=== PATIENT | male | born 1970 | race Caucasian/White ===

== ENCOUNTER 2017-09-24 16:38 | Emergency (ER) | payer OTHER ==
[~2017-09-24] VITALS: Ht 167.6 cm; Wt 69.0 kg
[~2017-09-24 16:38] MED LIST: AMOX500T PO; BACT800T5 PO; IBUP800T23 PO
[2017-09-24 16:39] VITALS: BP 170/98; PULSE 115; RESP 20; TEMP 98.3; O2SAT 98
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
--- NOTE | 2017-09-24 18:39 | RADRPT ---
EXAM DATE/TIME: 09/24/2017 18:09 [facility] COMPARISON: CT BRAIN W/O CONTRAST, August 02, 2010, 21:31. INDICATIONS : Trauma, fall. RADIATION DOSE: 47.41 CTDIvol (mGy) MEDICAL HISTORY : Non-responsive. SURGICAL HISTORY : None. ENCOUNTER: Initial ACUITY: 1 day PAIN SCALE: 8/10 LOCATION: cranial TECHNIQUE: Multiple contiguous axial images were obtained of the head. Using automated exposure control and adj ustment of the mA and/or kV according to patient size, radiation dose was kept as low as reasonably a chievable to obtain optimal diagnostic quality images. DICOM format image data is available electro nically for review and comparison. FINDINGS: CEREBRUM: The ventricles are normal for age. No evidence of midline shift, mass lesion, hemorrhage or acute in farction. No extra-axial fluid collections are seen. POSTERIOR FOSSA: The cerebellum and brainstem are intact. The 4th ventricle is midline. The cerebellopontine angle i s unremarkable. EXTRACRANIAL: The visualized portion of the orbits is intact. SKULL: The calvaria is intact. No evidence of skull fracture. CONCLUSION: Negative noncontrast head CT. Titi Wiggins MD on September 24, 2017 at 18:36 Board Certified Radiologist. This report was verified electronically.
--- NOTE | 2017-09-24 18:51 | RADRPT ---
EXAM DATE/TIME: 09/24/2017 18:09 [facility] COMPARISON: No previous studies available for comparison. INDICATIONS : Trauma, fall. RADIATION DOSE: 42.64 CTDIvol (mGy) MEDICAL HISTORY : None SURGICAL HISTORY : None. ENCOUNTER: Initial ACUITY: 1 day PAIN SCALE: 8/10 LOCATION: neck TECHNIQUE: Volumetric scanning of the cervical spine was performed. Multiplanar reconstructions in the sagittal, coronal and oblique axial planes were performed. Using automated exposure control and adjustment o f the mA and/or kV according to patient size, radiation dose was kept as low as reasonably achievable to obtain optimal diagnostic quality images. DICOM format image data is available electronically f or review and comparison. FINDINGS: No fracture or subluxation of the cervical spine. Very mild disc space narrowing and osseous ridging seen at essentially all levels. 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 No foraminal o r spinal stenosis demonstrated. Paravertebral soft tissues are within normal limits. CONCLUSION: Intact cervical spine. Titi Wiggins MD on September 24, 2017 at 18:48 Board Certified Radiologist. This report was verified electronically.
[2017-09-24] MEDS ORDERED: ACETAMINOPHEN 325 MG TAB PO ONE (19:15)
== END 2017-09-24 21:07 | disposition home or self-care (01) ==
LOC: NEPD 16:38
DX: S09.90XA Unspecified injury of head, initial encounter (principal); W10.9XXA Fall (on) (from) unspecified stairs and steps, initial encounter; R04.0 Epistaxis; F12.90 Cannabis use, unspecified, uncomplicated
CPT/HCPCS: 70450; 72125; 99285